=== PATIENT | female | born 1980 | race Two or more races ===

== ENCOUNTER 2021-06-12 08:14 | Outpatient (CLI) | payer OTHER | END 2021-06-12 08:25 | disposition home or self-care (01) | LOC: MRI 08:14 | PROVIDERS: ATTEND Internal Medicine Endocrinology, Diabetes & Metabolism | DX: D44.10 Neoplasm of uncertain behavior of unspecified adrenal gland (principal) | CPT/HCPCS: 74182 ==

== ENCOUNTER 2022-01-24 07:14 | Outpatient (CLI) | payer OTHER | END 2022-01-24 07:21 | disposition home or self-care (01) | LOC: SONOGRAMA 07:14 | DX: D37.6 Neoplasm of uncertain behavior of liver, gallbladder and bile ducts (principal) ==

== ENCOUNTER 2023-11-07 07:52 | Outpatient (CLI) | payer OTHER | END 2023-11-07 08:02 | disposition home or self-care (01) | LOC: SONOGRAMA 07:52 | PROVIDERS: ATTEND Dentist Oral and Maxillofacial Surgery | DX: E04.1 Nontoxic single thyroid nodule (principal) ==